=== PATIENT | male | born 1955 | race Caucasian/White ===

== ENCOUNTER 2024-03-12 10:37 | Day surgery (SDC) | payer MEDICARE ==
[~2024-03-12 10:37] MED LIST: Sodium Chloride 0.9% 10 ML Syringe FLUSH PRN; Sodium Chloride 0.9% 10 ML Syringe FLUSH SCH
[2024-03-12] MEDS: Lactated Ringers 1,000 ML IV SCH (11:20)
[2024-03-12] MEDS ORDERED: fentaNYL 100 MCG/2 ML SDV IVPUSH PRN (12:15)
[2024-03-12] MEDS ORDERED: Ondansetron 4 MG/2 ML SDV IVPUSH PRN (12:15)
[2024-03-12] MEDS ORDERED: HYDROmorphone 0.5 MG/0.5 ML Syringe IVPUSH PRN (12:15)
[2024-03-12] MEDS ORDERED: Propofol 200 MG/20 ML SDV ONE ×3 (12:43→14:15)
[2024-03-12] MEDS ORDERED: Midazolam 1 MG/ML 2 ML SDV ONE (12:49)
[2024-03-12] MEDS ORDERED: Lidocaine 1% 2 ML ONE (12:49)
[2024-03-12] MEDS ORDERED: fentaNYL 100 MCG/2 ML SDV ONE (12:49)
[2024-03-12] MEDS ORDERED: ceFAZolin 2 GM Vial ONE (13:30)
[2024-03-12] MEDS: Bupivacaine 0.5% 30 ML SDV ONE (13:55)
[2024-03-12] MEDS: EPINEPHrine 1 MG/ML SDV ONE (13:55)
[2024-03-12] MEDS ORDERED: Lactated Ringers 1,000 ML ONE (14:45)
[2024-03-12] MEDS: Ketorolac 30 MG/ML SDV IVPUSH SCH (15:10)
[2024-03-12] MEDS: oxyCODONE 5 MG Tab PO PRN (15:10)
== END 2024-03-12 16:14 | disposition home or self-care (01) ==
LOC: JD.SDS 10:37
PROVIDERS: ATTEND Surgery
DX: K40.90 Unilateral inguinal hernia, without obstruction or gangrene, not specified as recurrent (principal); I10 Essential (primary) hypertension; F17.210 Nicotine dependence, cigarettes, uncomplicated; Z79.82 Long term (current) use of aspirin; Z79.899 Other long term (current) drug therapy
CPT/HCPCS: 87641; A9270-GY; J0171; J0665; J0690; J1885; J2250; J2704; J3010; J3490; J7120